=== PATIENT | female | born 1945 | race Caucasian/White ===

== ENCOUNTER 2024-02-29 06:08 | Observation (INO) | payer MEDICARE ==
[2024-02-24 10:46] LABS: BASOPHILS % 0.7 % (0.0-1.0); EOSINOPHILS # (AUTO) 0.1 (0.0-0.4); EOSINOPHILS % 2.5 % (0.0-6.0); HEMATOCRIT 30.3 % (34.2-44.1); HEMOGLOBIN 13.3 g/dL (12.0-16.0); LYMPHOCYTES # (AUTO) 1.4 (1.0-3.2); LYMPHOCYTES % 25.7 % (18.0-39.1); MEAN CORPUSCULAR HGB CONC 43.9 g/dL (31-35); MEAN CORPUSCULAR VOLUME 100.3 fL (81-99); MONOCYTES # (AUTO) 0.3 (0.2-0.8); MONOCYTES % 5.8 % (4.4-11.3); NEUTROPHILS # (AUTO) 3.6 (2.1-6.9); NEUTROPHILS % 64.8 % (38.7-80.0); PLATELET COUNT 298 x10e3/uL (140-360); RED BLOOD COUNT 3.02 x10e6/uL (3.6-5.1); RED CELL DISTRIBUTION WIDTH 17.4 % (11.7-14.4); WHITE BLOOD COUNT 5.53 x10e3/uL (4.8-10.8)
[2024-02-24 11:08] LABS: ALBUMIN/GLOBULIN RATIO 1.2 (0.8-2.0); ANION GAP 16.8 mmol/L (8-16); BILIRUBIN,TOTAL 0.5 mg/dL (0.2-1.2); CALCIUM 9.5 mg/dL (8.4-10.2); CREATININE, SERUM 0.87 mg/dL (0.57-1.11); POTASSIUM 3.8 mmol/L (3.5-5.1); TOTAL PROTEIN 7.3 g/dL (6.5-8.1)
[~2024-02-29] VITALS: Ht 167.6 cm; Wt 64.4 kg
[~2024-02-29 06:08] MED LIST: ARICEPT5 MG PO; CLEOCIN HCL150 MG PO; CO Q-10200 MG PO; CYPROHEPTADINE H4 MG PO; LEVAQUIN500 MG PO; LEXAPRO10 MG PO; LISINOPRIL5 MG PO; LOSARTAN POTAS100 MG PO; MEMANTINE HCL E14 MG PO; MULTI-VITAMIN1 EACH PO; OMEGA 3 1,0001 EACH PO; VITAMIN B-121000 MCG PO
[2024-02-29] MEDS ORDERED: PHENYLEPHRINE HCL 1% 10 MG/ML VIAL ONE (07:40)
[2024-02-29] MEDS ORDERED: SODIUM CHLORIDE 0.9% 100 ML ONE (07:40)
[2024-02-29] MEDS ORDERED: LACTATED RINGER'S 1,000 ML ONE (07:40)
[2024-02-29] MEDS ORDERED: BUPIVACAINE 0.25% 30ML SDV ONE (07:55)
[2024-02-29] MEDS ORDERED: ONDANSETRON HCL INJ 2MG/ML 2ML 2 MG/ML VIAL IV PRN (11:15)
[2024-02-29] MEDS ORDERED: SODIUM CHLORIDE 0.9% 1000ML 1,000 ML IV SCH (11:15)
[2024-02-29] MEDS ORDERED: ACETAMINOPHEN/CODEINE 300MG - 30MG TAB PO PRN (11:15)
[2024-02-29] MEDS ORDERED: ACETAMINOPHEN 1000 MG/100 ML 100 ML IV ONE (11:37)
[2024-02-29] MEDS: ONDANSETRON HCL INJ 2MG/ML 2ML 2 MG/ML VIAL ONE (11:40)
[2024-02-29] MEDS: ACETAMINOPHEN 1000 MG/100 ML IV PRN (11:40)
[2024-02-29] MEDS: FENTANYL CITRATE/PF 100MCG/2 ML INJ ONE (11:51)
[2024-02-29] MEDS ORDERED: SEVOFLURANE INHAL SOLN 250 ML PEN BTL ONE (12:26)
[2024-02-29] MEDS ORDERED: PROPOFOL IV EMULSION 10 MG/ML 20 ML VIAL ONE (12:26)
[2024-02-29] MEDS ORDERED: ONDANSETRON HCL INJ 2MG/ML 2ML 2 MG/ML VIAL ONE (12:26)
[2024-02-29] MEDS ORDERED: SUCCINYLCHOLINE CHLORIDE 20 MG/ML 10ML VIAL ONE (12:26)
[2024-02-29] MEDS ORDERED: ATROPINE SULFATE 1 MG/ML VIAL ONE (12:26)
[2024-02-29] MEDS ORDERED: DEXAMETHASONE SOD PHOS INJ 4 MG/ML SDV ONE (12:26)
[2024-02-29] MEDS: METOCLOPRAMIDE HCL 10 MG/2ML VIAL ONE (12:31)
[2024-02-29] MEDS ORDERED: FENTANYL CITRATE/PF 100MCG/2 ML INJ ONE (12:45)
[2024-02-29 14:00] VITALS: BP 174/72; PULSE 46; RESP 17; TEMP 97.6; O2SAT 99
[2024-02-29 16:39] VITALS: BP 162/77; PULSE 55; RESP 18; TEMP 97.7; O2SAT 98
[2024-02-29] MEDS ORDERED: ESCITALOPRAM OXALATE 10 MG TAB PO SCH (21:00)
[2024-03-01] MEDS ORDERED: LISINOPRIL 2.5 MG TAB PO SCH (09:00)
== END 2024-02-29 19:07 | disposition home or self-care (01) ==
LOC: OR 06:08 → PACU V 11:20 → MED/SURG3 13:10
PROVIDERS: ADMIT Surgery; ATTEND Surgery
DX: C50.912 Malignant neoplasm of unspecified site of left female breast (principal); I10 Essential (primary) hypertension; F03.90 Unspecified dementia, unspecified severity, without behavioral disturbance, psychotic disturbance, mood disturbance, and anxiety; Z88.0 Allergy status to penicillin; Z01.810 Encounter for preprocedural cardiovascular examination; Z01.812 Encounter for preprocedural laboratory examination; Z01.818 Encounter for other preprocedural examination; Z79.899 Other long term (current) drug therapy
CPT/HCPCS: 19307; 36415; 71046; 80053; 85025; 88309; 93005; G0378; J0131; J0330; J0461; J1100; J2371; J2405; J2704; J2765; J3010; J7050; J7121; 88307; 88342